=== PATIENT | male | born 1985 ===

== ENCOUNTER 2016-10-25 20:55 | Inpatient (IN) | payer OTHER ==
[2016-10-25 22:27] LABS: BASO % 0.4 % (0.0-2.0); EOS % 0.1 % (0.0-4.0); HEMATOCRIT 44.2 % (35.0-51.0); LYMPH # 1.4 K/uL (1.0-4.3); LYMPH % 13.1 % (20.0-40.0); MEAN CELL VOLUME 88.3 fl (80.0-94.0); MEAN CORPUSCULAR HEMOGLOBIN 29.9 pg (27.0-31.0); MEAN CORPUSCULAR HGB CONC 33.9 g/dL (33.0-37.0); MEAN PLATELET VOLUME 8.7 fl (7.2-11.7); MONO # 0.4 K/uL (0.0-0.8); NEUT # 8.7 K/uL (1.8-7.0); NEUT % 82.4 % (50.0-75.0); NRBC % 0.1 % (0.0-0.0); RED CELL DISTRIBUTION WIDTH 12.7 % (11.5-14.5); WHITE BLOOD COUNT 10.5 K/uL (4.8-10.8)
[2016-10-25 22:37] LABS: ALB/GLOB RATIO 1.4 (1.0-2.1); ALKALINE PHOSPHATASE 64 U/L (38-126); ALT/SGPT 24 U/L (21-72); AST/SGOT 25 U/L (17-59); BILIRUBIN,TOTAL 0.6 mg/dl (0.2-1.3); BLOOD UREA NITROGEN 15 mg/dl (9-20); CALCIUM 9.7 mg/dL (8.4-10.2); CARBON DIOXIDE 30 mmol/L (22-30); CHLORIDE 99 mmol/L (98-107); CHOLESTEROL 141 mg/dL (0-199); GFR AFRICAN-AMERICAN > 60; GLUCOSE,RANDOM 108 mg/dL (75-110); MAGNESIUM 1.8 MG/DL (1.6-2.3); PARTIAL THROMBOPLASTIN TIME 30.8 Seconds (25.6-37.1); POTASSIUM 4.1 MMOL/L (3.6-5.0); SODIUM 139 mmol/l (132-148); TOTAL PROTEIN 7.9 G/DL (6.3-8.2)
--- NOTE | 2016-10-25 23:01 | ED PDOC ---
HPI: General Adult Time Seen by Provider: 10/25/16 21:19 Chief Complaint (Nursing): Weakness/Neurological Deficit Chief Complaint (Provider): Right-Sided Facial Numbness History Per: Patient History/Exam Limitations: no limitations Onset/Duration Of Symptoms: Hrs Additional Complaint(s): Blayne Leon is a 31 year old male that presents to the ED with a chief complaint of right-sided facial numbness that was suddenly onset at 4:40 PM today, with associated difficultly in speech that lasted two minutes and resolved spontaneously. Patient reports he then experienced associated dizziness that he has felt secondary to migraines in the past. He states that he then laid down, but about an hour later felt paresthesia to the right hand, which also resolved spontaneously. He has has persistent dizziness but no longer reports any dizziness or numbness. PMD: None NIHSS Stroke Scale - Date/Time Evaluation Performed Date Performed: 10/25/16 Time Performed: 21:20 When Was NIHSS Performed: Baseline - How Severe is the Stroke Level of Consciousness: 0=Alert LOC to Questions: 0=Both comments correct LOC to commands: 0=Obeys both correctly Best Gaze: 0=Normal Visual: 0=No visual loss Facial: 0=Normal Motor Arm - Left: 0=No drift Motor Arm - Right: 0=No drift Motor Leg - Left: 0=No drift Motor Leg - Right: 0=No drift Limb Ataxia: 0=Absent Sensory: 0=Normal Best Language: 0=No aphasia Dysarthia: 0=Normal articulation Extinction & Inattention (Neglect): 0=Normal, no object Score: 0 Past Medical History Reviewed: Historical Data, Nursing Documentation, Vital Signs Vital Signs: Last Vital Signs Temp 97.9 F 10/27/16 16:13 Pulse 74 10/27/16 16:13 Resp 20 10/27/16 16:13 BP 111/69 10/27/16 16:13 Pulse Ox 97 10/27/16 16:13 - Medical History PMH: Migraine - Family History Family History: States: No Known Family Hx Other Family History: migraines - Social History Current smoker - smoking cessation education provided: No Alcohol: Social - Home Medications Home Medications: Ambulatory Orders Medication Instructions Recorded Aspirin 325 mg PO DAILY #30 tab 10/26/16 Atorvastatin [Lipitor] 20 mg PO DAILY #30 tab 10/26/16 Magnesium Oxide [Mag-Ox] 400 mg PO BID #60 tab 10/26/16 - Allergies Allergies/Adverse Reactions: Allergies Allergy/AdvReac Type Severity Reaction Status Date / Time No Known Allergies Allergy Verified 10/25/16 21:05 Review of Systems ROS Statement: Except As Marked, All Systems Reviewed And Found Negative (and as per HPI) Neurological: Positive for: Numbness (right-sided facial numbness), Change in Speech (experienced difficulty speaking while experiencing right-sided facial numbness), Dizziness (persistent), Other (paresthesia to right hand) Physical Exam - Reviewed Nursing Documentation Reviewed: Yes Vital Signs Reviewed: Yes - Physical Exam Appears: Positive for: Non-toxic, No Acute Distress Head Exam: Positive for: ATRAUMATIC, NORMOCEPHALIC Skin: Positive for: Warm, Dry Eye Exam: Positive for: EOMI, PERRL ENT: Negative for: Pharyngeal Erythema, Tonsillar Exudate Neck: Positive for: Painless ROM, Supple Cardiovascular/Chest: Positive for: Regular Rate, Rhythm. Negative for: Murmur Respiratory: Positive for: Normal Breath Sounds. Negative for: Wheezing Gastrointestinal/Abdominal: Positive for: Soft. Negative for: Tenderness Back: Positive for: Normal Inspection. Negative for: Decreased ROM Extremity: Positive for: Normal ROM. Negative for: Deformity Lymphatic: Negative for: Adenopathy Neurologic/Psych: Positive for: Alert, garde manager II-XII (intact), Oriented (x3), Cerebellar Tests (normal). Negative for: Motor/Sensory Deficits, Aphasia, Facial Droop - Laboratory Results Result Diagrams: 10/25/16 22:25 10/25/16 22:25 - ECG O2 Sat by Pulse Oximetry: 99 (RA) Pulse Ox Interpretation: Normal Medical Decision Making Medical Decision Making: Impression: Headache, ddx include TIA, Atypical Migraine vs. Electrolyte Abnormality vs. Metabolic Encephalopathy Plan: * CT Head w/o contrast * Chest X-ray * EKG * Type and Screen * Urine Drug Screen * Urine Dip * Reevaluation EXAM: CT Head Without Intravenous Contrast CLINICAL HISTORY: The patient is a 31 years male; Signs and symptoms; Numbness / parasthesia; Right; Patient HX: HX of migraines; Additional info: Right facial numbness and aphasia transient 9:21 PM TECHNIQUE: Axial computed tomography images of the head/brain without intravenous contrast. All CT scans at this facility use one or more dose reduction techniques, viz.: automated exposure control; ma/kV adjustment per patient size (including targeted exams where dose is matched to indication; i.e. head); or iterative reconstruction technique. Coronal and sagittal reformatted images were created and reviewed. COMPARISON: No relevant prior studies available. FINDINGS: Brain: Streak artifact limits evaluation of the skull base. No evidence of acute intracranial hemorrhage. Correlate clinically. CT can miss an acute nonhemorrhagic CVA. It should be noted that acute strokes may be initially radiologically occult on CT. If the patient is having persistent stroke like symptomatology, then MRI may be beneficial. No significant white matter disease. No edema. Ventricles: Unremarkable. No ventriculomegaly. Bones/joints: Soft tissues: Unremarkable. Sinuses: Unremarkable as visualized. No acute sinusitis. Mastoid air cells: Unremarkable as visualized. No mastoid effusion. IMPRESSION: Streak artifact limits evaluation of the skull base. No evidence of acute intracranial hemorrhage. Correlate clinically. CT can miss an acute nonhemorrhagic CVA. It should be noted that acute strokes may be initially radiologically occult on CT. If the patient is having persistent stroke like symptomatology, then MRI may be beneficial. Thank you for allowing us to participate in the care of your patient. Dictated and Authenticated by: Ryan Meadows MD 10/25/2016 10:01 PM Eastern Time ([place] & [place]) Labs unremarkable DW [facility]. Pt to be hospitalized for full workup of possible TIA. Scribe Attestation: Documented by Jacklyn Brooke and Nancy Barrios, acting as a scribe for Macie Trinh MD. Provider Scribe Attestation: All medical record entries made by the Scribe were at my direction and personally dictated by me. I have reviewed the chart and agree that the record accurately reflects my personal performance of the history, physical exam, medical decision making, and the department course for this patient. I have also personally directed, reviewed, and agree with the discharge instructions and disposition. Disposition - Clinical Impression Clinical Impression: Weakness of one side of body Discussed With : Agnes Polanco Comment: Medical Service Doctor Will See Patient In The: Hospital Counseled Patient/Family Regarding: Studies Performed, Diagnosis - Disposition Disposition Time: 23:00 Condition: FAIR
--- NOTE | 2016-10-26 07:16 | CP.PCM.HP ---
History of Present Illness - History of Present Illness History of Present Illness: A 31 year old male was admitted on 10/25/16 for tingling sensation and numbness on right face which developed around at 4:30 PM at home. It was associated with speech difficulty. It lasted for two minutes and resolved. He also had headache on left side head. He also had blurry (splotchy) vision. Initially he thought he had migraines. He also had tingling sensation or over sensitive skin of right 2nd and 3rd fingers, and he came to ER. Normally he has 'migraines', depending on weather, but not frequently, usually lasting for half a day. He used to take OTC medicines like tylenols. He has not been diagnosed with migraines by a doctor. He denies any family history of migraines, hypertension or stroke. He does not smoke cigarettes and does not use any drugs. He works at home. Present on Admission - Present on Admission Any Indicators Present on Admission: No History of DVT/PE: No History of Uncontrolled Diabetes: No Urinary Catheter: No Decubitus Ulcer Present: No Review of Systems - EENT Eyes: Blurred Vision - Cardiovascular Cardiovascular: absent: Chest Pain - Respiratory Respiratory: absent: Cough, Dyspnea - Gastrointestinal Gastrointestinal: absent: Bloating, Early Satiety, Hematemesis Past Patient History - Past Social History Smoking Status: Former Smoker - CARDIAC Hx Cardiac Disorders: No - PULMONARY Hx Respiratory Disorders: No - NEUROLOGICAL Hx Neurological Disorder: Yes Other/Comment: Migraines - HEENT Hx HEENT Problems: No - RENAL Hx Chronic Kidney Disease: No - ENDOCRINE/METABOLIC Hx Endocrine Disorders: No - HEMATOLOGICAL/ONCOLOGICAL Hx Blood Disorders: No Hx AIDS: No Hx Human Immunodeficiency Virus (HIV): No - INTEGUMENTARY Hx Dermatological Problems: No - MUSCULOSKELETAL/RHEUMATOLOGICAL Hx Musculoskeletal Disorders: No Hx Falls: No - GASTROINTESTINAL Hx Gastrointestinal Disorders: No - GENITOURINARY/GYNECOLOGICAL Hx Genitourinary Disorders: No - PSYCHIATRIC Hx Psychophysiologic Disorder: No Hx Substance Use: No - SURGICAL HISTORY Hx Surgeries: No - ANESTHESIA Hx Anesthesia: No Meds Allergies/Adverse Reactions: Allergies Allergy/AdvReac Type Severity Reaction Status Date / Time No Known Allergies Allergy Verified 10/25/16 21:05 Physical Exam - Constitutional Appears: No Acute Distress - Head Exam Head Exam: NORMAL INSPECTION - Neck Exam Neck exam: Positive for: Full Rom - Respiratory Exam Respiratory Exam: Clear to Auscultation Bilateral, NORMAL BREATHING PATTERN - Cardiovascular Exam Cardiovascular Exam: REGULAR RHYTHM. absent: Systolic Murmur - GI/Abdominal Exam GI & Abdominal Exam: Normal Bowel Sounds, Soft. absent: Tenderness Results - Vital Signs Recent Vital Signs: Last Vital Signs Temp 98 F 10/26/16 04:58 Pulse 79 10/26/16 04:58 Resp 18 10/26/16 04:58 BP 100/61 10/26/16 04:58 Pulse Ox 98 10/26/16 04:58 - Labs Result Diagrams: 10/25/16 22:25 10/25/16 22:25 Assessment & Plan - Assessment and Plan (Free Text) Assessment: A 31 year old male came with tingling sensation of right side cheek, blurry vision. R/O TIA CT head was negative. Plan: neurocheck aspirin neurology consult brain MRI TIA work up. - Date & Time Date: 10/26/16 Time: 07:18
--- NOTE | 2016-10-26 09:07 | CARD ---
APPROVED REPORT EKG Measurement Heart [id number] <Conclusion> Normal sinus rhythm Early repolarization Normal ECG
--- NOTE | 2016-10-26 09:22 | CT ---
PROCEDURE: CT HEAD WITHOUT CONTRAST. HISTORY: RIGHT facial numbness and aphasia transient COMPARISON: None available. TECHNIQUE: Axial computed tomography images were obtained through the head/brain without intravenous contrast. Radiation dose: Total exam DLP = 828.39 mGy-cm. This CT exam was performed using one or more of the following dose reduction techniques: Automated exposure control, adjustment of the mA and/or kV according to patient size, and/or use of iterative reconstruction technique. FINDINGS: HEMORRHAGE: No acute parenchymal, subarachnoid or extra-axial hemorrhage. BRAIN: No mass effect or edema. No atrophy or chronic microvascular ischemic changes. VENTRICLES: Unremarkable. No hydrocephalus. CALVARIUM: Unremarkable. PARANASAL SINUSES: Unremarkable as visualized. No significant inflammatory changes. MASTOID AIR CELLS: Unremarkable as visualized. No inflammatory changes. OTHER FINDINGS: None. IMPRESSION: No acute intracranial hemorrhage. . If symptoms persist or occult infarct suspected clinically recommend MRI, the urgency of which should be based on clinical assessment.
[2016-10-26] MEDS ORDERED: Gadodiamide 287 MG/ML VIAL (15ML) IV ONE (10:22)
--- NOTE | 2016-10-26 11:21 | MRI ---
PROCEDURE: MRI BRAIN WITH AND WITHOUT CONTRAST HISTORY: transient RIGHT facial numbness and aphasia COMPARISON: None. TECHNIQUE: Multiplanar, multisequence MR images of the brain were obtained with and without intravenous contrast enhancement. FINDINGS: HEMORRHAGE: None DWI: Punctate 1 millimeter focus of restricted diffusion in the high left frontal lobe (series 3, image 23). There is corresponding hyperintense focus on FLAIR sequences. BRAIN PARENCHYMA: No mass,mass effect or edema. No atrophy or chronic microvascular ischemic changes. ENHANCEMENT: No abnormal intracranial enhancement. VENTRICLES: Unremarkable. No hydrocephalus. CRANIUM: Unremarkable. ORBITS: Grossly unremarkable. PARANASAL SINUSES/MASTOIDS: Clear VASCULAR SYSTEM: Skull base flow voids intact. OTHER FINDINGS: None . IMPRESSION: Punctate 1 millimeter focus of restricted diffusion in the high left frontal lobe (series 3, image 23). There is corresponding hyperintense focus on FLAIR sequences. Possibility of a tiny focus of acute ischemia is not excluded.
--- NOTE | 2016-10-26 11:31 | MRI ---
PROCEDURE: MR Angiography of the neck without contrast HISTORY: transient RIGHT facial numbness and aphasia COMPARISON: None available. TECHNIQUE: 3D [id number] angiography of the neck was performed. Rotating maximum intensity projection images of the cervical carotid and vertebral arteries were generated. The origins of the common carotid arteries were not visualized, which is a limitation inherent to the non-contrast time of flight technique. FINDINGS: RIGHT CAROTID ARTERIES: Common Carotid Artery: Normal. Carotid Bifurcation: Normal. Internal Carotid Artery:Normal. External Carotid Artery (proximal branches): Normal. LEFT CAROTID ARTERIES: Common Carotid Artery: Normal. Carotid Bifurcation: Normal. Internal Carotid Artery:Normal. External Carotid Artery (proximal branches): Normal. VERTEBRAL ARTERIES: Right Vertebral Artery: Normal. Left Vertebral Artery: Normal. OTHER FINDINGS: None. IMPRESSION: Normal MR Angiography of the neck.
--- NOTE | 2016-10-26 11:56 | CP.PCM.CON ---
History of Present Illness - History of Present Illness History of Present Illness: Mr. Leon is a 31-year-old man with a past medical history of complicated and occular migraine headaches, who states that he was sitting down, on his computer, when he suddenly had visual deficits, followed by speech deficits and right facial numbness. He then developed a left sided migraine headache. These resolved after about 5 minutes; however, about 1 hour later he noticed right hand numbness involving mostly his 3 finger mostly toward the radial side. He presented to the ED, but by then, his symptoms had resolved. His initial BP was 155/91 mm Hg. Today, he has no further complaints and feels like he is back to normal. MRI of the brain was done and showed a punctate infarct in the left frontal lobe with restricted diffusion. Review of Systems - Review of Systems All systems: reviewed and no additional remarkable complaints except Past Patient History - Past Social History Smoking Status: Former Smoker - CARDIAC Hx Cardiac Disorders: No - PULMONARY Hx Respiratory Disorders: No - NEUROLOGICAL Hx Neurological Disorder: Yes Other/Comment: Migraines - HEENT Hx HEENT Problems: No - RENAL Hx Chronic Kidney Disease: No - ENDOCRINE/METABOLIC Hx Endocrine Disorders: No - HEMATOLOGICAL/ONCOLOGICAL Hx Blood Disorders: No Hx AIDS: No Hx Human Immunodeficiency Virus (HIV): No - INTEGUMENTARY Hx Dermatological Problems: No - MUSCULOSKELETAL/RHEUMATOLOGICAL Hx Musculoskeletal Disorders: No Hx Falls: No - GASTROINTESTINAL Hx Gastrointestinal Disorders: No - GENITOURINARY/GYNECOLOGICAL Hx Genitourinary Disorders: No - PSYCHIATRIC Hx Psychophysiologic Disorder: No Hx Substance Use: No - SURGICAL HISTORY Hx Surgeries: No - ANESTHESIA Hx Anesthesia: No Meds Allergies/Adverse Reactions: Allergies Allergy/AdvReac Type Severity Reaction Status Date / Time No Known Allergies Allergy Verified 10/25/16 21:05 - Medications Medications: Current Medications Aspirin (Aspirin) 325 mg PO DAILY [facility] Last Admin: 10/26/16 08:50 Dose: 325 mg Atorvastatin Calcium (Lipitor) 20 mg PO DAILY [facility] Physical Exam - Constitutional Appears: Well - Head Exam Head Exam: ATRAUMATIC, NORMAL INSPECTION, NORMOCEPHALIC - Eye Exam Eye Exam: EOMI, Normal appearance, PERRL - ENT Exam ENT Exam: Mucous Membranes Moist, Normal Exam - Neck Exam Neck exam: Positive for: Normal Inspection - Respiratory Exam Respiratory Exam: Clear to Auscultation Bilateral, NORMAL BREATHING PATTERN - Cardiovascular Exam Cardiovascular Exam: REGULAR RHYTHM, +S1, +S2 - GI/Abdominal Exam GI & Abdominal Exam: Normal Bowel Sounds, Soft. absent: Tenderness - Rectal Exam Rectal Exam: Deferred - Extremities Exam Extremities exam: Positive for: normal inspection - Back Exam Back exam: NORMAL INSPECTION - Neurological Exam Neurological exam: Alert, CN II-XII Intact, Normal Gait, Oriented x3, Reflexes Normal - Expanded Neurological Exam Expanded Patient oriented to: person, place, time Cranial nerves: EOM's Intact: Normal, Facial Sensation: Normal Ataxia: No Cerebellar Function: Finger to Nose: Normal Upper motor neuron: Babinski Sign: Normal Sensory exam: Lower Extremity Light Touch: Normal, Lower Extremity Pin Prick: Normal, Upper Extremity Light Touch: Normal, Upper Extremity Pin Prick: Normal Neuro motor strength exam: Left Upper Extremity: 5, Right Upper Extremity: 5, Left Lower Extremity: 5, Right Lower Extremity: 5 DTR: Achilles Tendon Left: 2+, Achilles Tendon Right: 2+, Bicep Left: 2+, Bicep Right: 2+, Brachioradialis Left: 2+, Brachioradialis Right: 2+, Patellar Left: 2 +, Patellar Right: 2+, Tricep Left: 2+, Tricep Right: 2+ - Psychiatric Exam Psychiatric exam: Normal Affect, Normal Mood - Skin Skin Exam: Dry, Intact, Normal Color, Warm Results - Vital Signs Recent Vital Signs: Last Vital Signs Temp 98.2 F 10/26/16 08:23 Pulse 67 10/26/16 08:23 Resp 18 10/26/16 08:23 BP 113/67 10/26/16 08:23 Pulse Ox 99 10/26/16 08:23 - Labs Result Diagrams: 10/25/16 22:25 10/25/16 22:25 Assessment & Plan (1) Acute ischemic stroke Assessment and Plan: The patient's history of migraine headaches puts him at an increased risk for ischemic stroke. I recommend the following for work up and treatment: 1. Telemetry 2. CTA of the head/neck 3. Echocardiogram (TYRELL) with bubble study 4. Aspirin 81 mg daily, Lipitor 40 mg daily. 5. Magnesum Oxide 400 mg BID 6. Hypercoagulable work-up: Factor V Leiden, Lupus anticoagulant, Prothrombin gene mutation, homocysteine, CRP/ESR, B12 level, Vitamin D level 7. PT/OT eval 8. Hydration with 2-3L of H20 PO daily 9. DVT Px 10. Case management consult Thank you. Status: Acute Priority: High
--- NOTE | 2016-10-26 12:05 | RAD ---
HISTORY: TIA COMPARISON: No prior. FINDINGS: LUNGS: No active pulmonary disease. PLEURA: No significant pleural effusion identified, no pneumothorax apparent. CARDIOVASCULAR: Normal. OSSEOUS STRUCTURES: No significant abnormalities. VISUALIZED UPPER ABDOMEN: Normal. OTHER FINDINGS: None. IMPRESSION: No active disease.
--- NOTE | 2016-10-26 12:48 | CARD ---
APPROVED REPORT EXAM: Two-dimensional and M-mode echocardiogram with Doppler and color Doppler. Other Information Quality : GoodRhythm : NSR INDICATION CVA/TIA 2D DIMENSIONS IVSd0.83 (0.7-1.1cm)LVDd4.56 (3.9-5.9cm) LVOT Diameter2.07 (1.8-2.4cm)PWd0.69 (0.7-1.1cm) IVSs1.03 (0.8-1.2cm)LVDs3.12 (2.5-4.0cm) FS (%) 31.5 %PWs1.07 (0.8-1.2cm) M-Mode DIMENSIONS Left Atrium (MM)3.24 (2.5-4.0cm)IVSd1.08 (0.7-1.1cm) Aortic Root3.01 (2.2-3.7cm)LVDd4.48 (4.0-5.6cm) Aortic Cusp Exc.2.16 (1.5-2.0cm)PWd0.95 (0.7-1.1cm) IVSs1.16 cmFS (%) 36 % LVDs2.86 (2.0-3.8cm)PWs1.06 cm Mitral Valve E/A ratio0.0 TDI E/Lateral E'0.0E/Medial E'0.0 Pulmonary Valve PV Peak Oxsnhhuz45.0cm/s LEFT VENTRICLE The left ventricle is normal size. There is normal left ventricular wall thickness. Left ventricle systolic function is normal. The Ejection Fraction is 60-65%. There is normal LV segmental wall motion. The left ventricular diastolic function is normal. RIGHT VENTRICLE The right ventricle is normal size. There is normal right ventricular wall thickness. The right ventricular systolic function is normal. ATRIA The left atrium size is normal. The right atrium size is normal. Interatrial septum appeared floppy and redundant, But no interatrial shunt was seen on doppler exam and with a"bubble study" AORTIC VALVE The aortic valve is normal in structure and function. No aortic regurgitation is present. There is no aortic valvular stenosis. MITRAL VALVE The mitral valve is normal in structure and function. There is no evidence of mitral valve prolapse. There is no mitral valve stenosis. There is no mitral valve regurgitation noted. TRICUSPID VALVE The tricuspid valve is normal in structure and function. There is no tricuspid valve regurgitation noted. PULMONIC VALVE The pulmonary valve is normal in structure and function. There is no pulmonic valvular regurgitation. GREAT VESSELS The aortic root is normal in size. The IVC is normal in size and collapses >50% with inspiration. PERICARDIAL EFFUSION The pericardium appears normal. <Conclusion> The left ventricle is normal size. There is normal left ventricular wall thickness. There is normal LV segmental wall motion. Left ventricle systolic function is normal. The Ejection Fraction is 60-65%. The left ventricular diastolic function is normal. Interatrial septum appeared floppy and redundant, But no interatrial shunt was seen on doppler exam and with a"bubble study"
[2016-10-26] MEDS: Magnesium Oxide 400 mg Tab UD PO SCH (16:29)
[2016-10-26 23:59] VITALS: RESP 20
--- NOTE | 2016-10-27 08:25 | CP.PCM.PN ---
Subjective - Date & Time of Evaluation Date of Evaluation: 10/27/16 Time of Evaluation: 08:23 - Subjective Subjective: feels better no headache no facial numbness Objective - Vital Signs/Intake and Output Vital Signs (last 24 hours): Temp Pulse Resp BP Pulse Ox 97.7 F 56 L 20 103/63 98 10/27/16 08:14 10/27/16 08:14 10/27/16 08:14 10/27/16 08:14 10/27/16 08:14 - Medications Medications: Current Medications Aspirin (Aspirin) 325 mg PO DAILY [facility] Last Admin: 10/26/16 08:50 Dose: 325 mg Atorvastatin Calcium (Lipitor) 20 mg PO DAILY [facility] Last Admin: 10/26/16 12:49 Dose: 20 mg Magnesium Oxide (Mag-Ox) 400 mg PO BID [facility] Last Admin: 10/26/16 16:29 Dose: 400 mg - Labs Labs: PT 13.0 Seconds (9.8-13.1) 10/25/16 22:25 INR 1.3 (0.9-1.2) H 10/25/16 22:25 APTT 30.8 Seconds (25.6-37.1) 10/25/16 22:25 - Constitutional Appears: No Acute Distress - Respiratory Exam Respiratory Exam: Clear to Ausculation Bilateral - Cardiovascular Exam Cardiovascular Exam: REGULAR RHYTHM. absent: Murmur - GI/Abdominal Exam GI & Abdominal Exam: Normal Bowel Sounds - Extremities Exam Extremities Exam: absent: Pedal Edema Assessment and Plan - Assessment and Plan (Free Text) Assessment: a 31 year old male who came with right facial numbness and speech difficulty brain MRI : an 1 mm punctate infarct in the left frontal lobe with restricted diffusion neck MRI : normal echo: normal EF, inter-atrial septum appeared floppy and redundant Plan: Aspirin and lipitor PT/OT cardiology consult follow up neurology consult
[2016-10-27] MEDS: Magnesium Oxide 400 mg Tab UD PO SCH ×2 (08:48→17:08)
--- NOTE | 2016-10-27 09:43 | CP.PCM.CON ---
History of Present Illness - History of Present Illness History of Present Illness: This 31-year-old man came to the emergency room after experiencing tingling on the right side of his face followed by difficulty speaking and followed by tingling numbness in his right hand. By the time the patient came to the emergency room these symptoms had mostly resolved and have not recurred since. This has never happened before. The patient denies any palpitations preceding this event. The patient has had a history of what he calls"migraines". Though this has never been clinically confirmed by a physician. The patient uses [id number] pain killers to manage this. The patient otherwise has been in good health. He denies any history of smoking or recreational drug use. Physical examination shows a young man who is quite alert of a concordant. Free of any symptoms at this point. Telemetry shows steady sinus rhythm at physiological rates between 55 and 75 bpm. His blood pressure was 114/70 mmHg. His jugular venous pressure was not elevated. There was no edema over his lower extremities. His peripheral pulses were well felt. His extremities are warm and his nailbeds were pink. There was no central or peripheral cyanosis. His apex was in the fifth space. The first and second heart sounds were normal. There were no murmurs or gallops. There were no rales. His electro-cardiogram showed sinus rhythm with a normal EKG pattern. His echocardiogram was reviewed. No right to left shunt was detected at the atrial level even with a bubble study. His labs were noted. Impression: TIA involving Broca's area. From cardiovascular point of view patient appears stable. The diagnosis of migraine needs to be evaluated and may possibly be the etiology for his symptoms. Coagulation studies have been sent. Past Patient History - Past Social History Smoking Status: Former Smoker - CARDIAC Hx Cardiac Disorders: No - PULMONARY Hx Respiratory Disorders: No - NEUROLOGICAL Hx Neurological Disorder: Yes Other/Comment: Migraines - HEENT Hx HEENT Problems: No - RENAL Hx Chronic Kidney Disease: No - ENDOCRINE/METABOLIC Hx Endocrine Disorders: No - HEMATOLOGICAL/ONCOLOGICAL Hx Blood Disorders: No Hx AIDS: No Hx Human Immunodeficiency Virus (HIV): No - INTEGUMENTARY Hx Dermatological Problems: No - MUSCULOSKELETAL/RHEUMATOLOGICAL Hx Musculoskeletal Disorders: No Hx Falls: No - GASTROINTESTINAL Hx Gastrointestinal Disorders: No - GENITOURINARY/GYNECOLOGICAL Hx Genitourinary Disorders: No - PSYCHIATRIC Hx Psychophysiologic Disorder: No Hx Substance Use: No - SURGICAL HISTORY Hx Surgeries: No - ANESTHESIA Hx Anesthesia: No Meds Home Medications: Home Medication List Medication Instructions Recorded Confirmed Type Aspirin 325 mg PO DAILY #30 tab 10/26/16 Rx Atorvastatin [Lipitor] 20 mg PO DAILY #30 tab 10/26/16 Rx Magnesium Oxide [Mag-Ox] 400 mg PO BID #60 tab 10/26/16 Rx Allergies/Adverse Reactions: Allergies Allergy/AdvReac Type Severity Reaction Status Date / Time No Known Allergies Allergy Verified 10/25/16 21:05 - Medications Medications: Current Medications Aspirin (Aspirin) 325 mg PO DAILY [facility] Last Admin: 10/27/16 08:50 Dose: 325 mg Atorvastatin Calcium (Lipitor) 20 mg PO DAILY [facility] Last Admin: 10/27/16 08:48 Dose: 20 mg Magnesium Oxide (Mag-Ox) 400 mg PO BID [facility] Last Admin: 10/27/16 08:48 Dose: 400 mg Results - Vital Signs Recent Vital Signs: Last Vital Signs Temp 97.7 F 10/27/16 08:14 Pulse 56 L 10/27/16 08:14 Resp 20 10/27/16 08:14 BP 103/63 10/27/16 08:14 Pulse Ox 98 10/27/16 08:14 - Labs Result Diagrams: 10/25/16 22:25 10/25/16 22:25
[2016-10-27 11:50] VITALS: TEMP 97.9
[2016-10-27 16:13] VITALS: BP 111/69; PULSE 74
--- NOTE | 2016-10-27 17:48 | CP.PCM.PN ---
Subjective - Date & Time of Evaluation Date of Evaluation: 10/27/16 Time of Evaluation: 17:45 - Subjective Subjective: Mr. Leon was seen and examined today at bedside. He was asymptomatic, had no focal neurologic complaints, was eating lunch and did not have headache or nausea. I discussed the results of his imaging and labs with him. Many of the hypercoagulable blood tests are pending and we will need to follow up with him as an outpatient. Objective - Vital Signs/Intake and Output Vital Signs (last 24 hours): Temp Pulse Resp BP Pulse Ox 97.9 F 74 20 111/69 97 10/27/16 16:13 10/27/16 16:13 10/27/16 16:13 10/27/16 16:13 10/27/16 16:13 - Medications Medications: Current Medications Aspirin (Aspirin) 325 mg PO DAILY [facility] Last Admin: 10/27/16 08:50 Dose: 325 mg Atorvastatin Calcium (Lipitor) 20 mg PO DAILY [facility] Last Admin: 10/27/16 08:48 Dose: 20 mg Magnesium Oxide (Mag-Ox) 400 mg PO BID [facility] Last Admin: 10/27/16 17:08 Dose: 400 mg - Labs Labs: PT 13.0 Seconds (9.8-13.1) 10/25/16 22:25 INR 1.3 (0.9-1.2) H 10/25/16 22:25 APTT 30.8 Seconds (25.6-37.1) 10/25/16 22:25 - Neurological Exam Neurological Exam: Alert, Awake, CN II-XII Intact, Normal Gait, Oriented x3, Reflexes Normal Neuro motor strength exam: Left Upper Extremity: 5, Right Upper Extremity: 5, Left Lower Extremity: 5, Right Lower Extremity: 5 Additional comments: NIHSS = 0 Assessment and Plan (1) Acute ischemic stroke Assessment & Plan: Continue aspirin 81 mg daily and lipitor 20 mg daily for secondary stroke prevention. He can probably stop the lipitor after a week since his LDL was 48. Continue magnesium oxide 400 mg BID for migraine prophylaxis. I recommend a prolonged teletypesetter monitor since he may still have paroxysmal atrial fibrillation. At least 30 days is recommended. The patient can be discharged home to follow up with me in two weeks as an outpatient. Thank you. Status: Acute
[2016-10-28 06:49] LABS: PHOSPHATIDYLSERINE AB IGM <25 U/mL (<25)
[2016-10-29 03:39] LABS: B2 GLYCOPROTEIN I AB(IGA) <9 SAU (<=20); B2 GLYCOPROTEIN I AB(IGG) <9 SGU (<=20); B2 GLYCOPROTEIN I AB(IGM) <9 SMU (<=20)
[2016-10-29 04:43] LABS: CARDIOLIPIN AB (IGA) <11 APL (<=11); PHOSPHATIDYLSERINE AB IGA <20 U/mL (<20)
[2016-11-03 15:25] VITALS: O2SAT 99
== END 2016-10-27 16:33 | disposition home or self-care (01) | DRG 66 ==
LOC: H.ER 20:55 → H.ERHOLD 23:00 → H.TEL 10-26 02:07 → OBSVTOIN 10-26 14:26
PROVIDERS: ADMIT Internal Medicine; ATTEND Internal Medicine
DX: I63.9 Cerebral infarction, unspecified (principal); G43.109 Migraine with aura, not intractable, without status migrainosus; R29.700 NIHSS score 0; Z87.891 Personal history of nicotine dependence